=== PATIENT | male | born 1955 | race Two or more races ===

== ENCOUNTER 2018-07-08 11:00 | Outpatient (AMBR) | payer MEDICAID, SELFPAY ==
--- NOTE | 2018-06-24 13:42 | PT.ODAYNRPT ---
PT Outpatient Daily Note Date of Service: June 24, 2018 OP Daily Note Visit Reasons: total knee Outpatient Physical Therapy Treatment Date: 06/24/18 Subjective: Continued knee pain. Can't remember doing his HEP Objective: See F/S for therex MT: PPM into knee extension to end-range with overpressure x7' total Assessment: Pt is now 2 months post op after waiting for authorization and then not answering our calls to schedule a treatment visit until now. Poor compliance with HEP, difficulty with SLR and no change in ROM since eval last month. Good improvement with knee extension PROM post manual therapy today to -2 deg Plan: Continue per POC Length of Time (minutes) of Treatment: 30 Minutes Office Procedures PT Procedures PT Date of Service: 06/24/18 Therapeutic Exercise 30 minutes: Yes
--- NOTE | 2018-06-24 13:47 | PTNOTE_ITS ---
PT Outpatient Daily Note Date of Service: June 24, 2018 OP Daily Note Visit Reasons: total knee Outpatient Physical Therapy Treatment Date: 06/24/18 Subjective: Continued knee pain. Can't remember doing his HEP Objective: See F/S for therex MT: PPM into knee extension to end-range with overpressure x7' total Assessment: Pt is now 2 months post op after waiting for authorization and then not answering our calls to schedule a treatment visit until now. Poor compliance with HEP, difficulty with SLR and no change in ROM since eval last month. Good improvement with knee extension PROM post manual therapy today to - 2 deg Plan: Continue per POC Length of Time (minutes) of Treatment: 30 Minutes Office Procedures PT Procedures PT Date of Service: 06/24/18 Therapeutic Exercise 30 minutes: Yes
--- NOTE | 2018-06-27 14:45 | PT.ODAYNRPT ---
PT Outpatient Daily Note Date of Service: June 27, 2018 OP Daily Note Visit Reasons: total knee Outpatient Physical Therapy Treatment Date: 06/27/18 Subjective: pt reported pain upon visit and is not taking pain meds. Objective: see flow sheet. Assessment: pt ambulates with antalgic gait and no AD. pt tolerated PROM of knee flexion well with no complaints but advised pt to take deep breaths throughout the stretches. pt was able to relax which made improvement in his ROM. pt cooperated well with all other ther ex with no c/o increased pain. Plan: continue POC per PT. Length of Time (minutes) of Treatment: 30 Minutes Office Procedures PT Procedures PT Date of Service: 06/24/18 Therapeutic Exercise 30 minutes: Yes PT Procedures PT Date of Service: 06/27/18 Therapeutic Exercise 30 minutes: Yes
--- NOTE | 2018-07-03 11:40 | PT.ODAYNRPT ---
PT Outpatient Daily Note Date of Service: July 03, 2018 OP Daily Note Visit Reasons: total knee Outpatient Physical Therapy Treatment Date: 07/03/18 Subjective: Continued knee pain. Can't remember doing his HEP Objective: See F/S for therex MT: PPM into knee extension to end-range with overpressure x7' total Assessment: Poor compliance with HEP, less difficulty with SLR. Good improvement with knee extension PROM post manual therapy today to -2 deg Plan: Continue per POC Length of Time (minutes) of Treatment: 30 Minutes Office Procedures PT Procedures PT Date of Service: 07/03/18 Therapeutic Exercise 30 minutes: Yes PT Procedures PT Date of Service: 06/24/18 Therapeutic Exercise 30 minutes: Yes PT Procedures PT Date of Service: 06/27/18 Therapeutic Exercise 30 minutes: Yes
--- NOTE | 2018-07-08 18:19 | PT.ODAYNRPT ---
PT Outpatient Daily Note Date of Service: July 08, 2018 OP Daily Note Visit Reasons: total knee Outpatient Physical Therapy Treatment Date: 07/08/18 Subjective: Continued knee pain. Can't remember doing his HEP Objective: See F/S for therex MT: PPM into knee flexion to end-range with overpressure x7' total Assessment: Poor compliance with HEP, less difficulty with SLR. Good improvement with knee flexion PROM post manual therapy today to 118 deg Plan: Continue per POC Length of Time (minutes) of Treatment: 30 Minutes Office Procedures PT Procedures PT Date of Service: 07/03/18 Therapeutic Exercise 30 minutes: Yes PT Procedures PT Date of Service: 07/08/18 Therapeutic Exercise 30 minutes: Yes PT Procedures PT Date of Service: 06/24/18 Therapeutic Exercise 30 minutes: Yes PT Procedures PT Date of Service: 06/27/18 Therapeutic Exercise 30 minutes: Yes
== END 2018-07-13 23:59 | disposition home or self-care (01) ==
PROVIDERS: PCP Family Medicine; Referring Provider Family Medicine; Visit Provider Family Medicine
DX: I10 Essential (primary) hypertension (principal)
CPT/HCPCS: 97110

== ENCOUNTER 2025-04-22 21:03 | Emergency (ER) | payer MEDICARE, SELFPAY ==
[2025-04-22 21:43] VITALS: BP 115/65; PULSE 66; RESP 18; TEMP 37.7; O2SAT 97
--- NOTE | 2025-04-22 22:30 | XR_ITS ---
Examination: PA lateral chest 2 views TECHNIQUE: Upright PA and lateral chest 2 views Date and time: April 22, 2025 11:28 PM Comparison November 02, 2020 INDICATIONS: Coughing chest pain today FINDINGS: Normal heart size Minimal blunting of the right lateral costophrenic angle. No pneumonia or pulmonary edema IMPRESSION:: No pneumonia or pulmonary edema
--- NOTE | 2025-04-22 22:38 | PD.EDURI ---
Upper Respiratory Inf. RME/HPI General Chief Complaint: Flu Like Symptoms Stated Complaint: SORE THROAT, AGUSTIN, BODYACHES, FEVER Time Seen by Provider: 04/22/25 22:30 Arrival date/time: 04/22/25 21:03 69M with history of HTN and DM presents to ED with 1 day of sore throat, cough, body aches, and fevers/chills. Patient went to clinic and tested neg for strep and flu. Limitations: no limitations Related Data Home Medications ?Medication ?Instructions ?Recorded ?Confirmed aspirin 81 mg chewable tablet 81 mg PO DAILY 01/29/18 11/03/20 gabapentin 300 mg capsule 300 mg PO TID 01/29/18 11/03/20 glipizide 10 mg tablet 10 mg PO BID 01/29/18 11/02/20 lisinopril 20 1 tab PO QDAY 01/29/18 11/03/20 mg-hydrochlorothiazide 12.5 mg tablet lovastatin 10 mg tablet 10 mg PO QDAY 01/29/18 11/03/20 sitagliptin phosphate 50 1 tab PO BID 01/29/18 11/03/20 mg-metformin 1,000 mg tablet (Janumet) Previous Rx's ?Medication ?Instructions ?Recorded acetaminophen 325 mg tablet (Mapap 650 mg (2 x 325 mg) PO Q6H PRN 11/03/20 (acetaminophen)) Fever >101.5 #20 tabs azithromycin 500 mg tablet 500 mg PO QDAY #5 tabs 11/03/20 Allergies Allergy/AdvReac Type Severity Reaction Status Date / Time No Known Allergies Allergy Verified 04/22/25 21:04 Review of Systems Review of Systems Systems Reviewed: All systems reviewed, normal except as documented Constitutional Constitutional: Reports system reviewed and no additional complaints, except as documented, Reports as per HPI, Reports body ache(s), Reports chills, Reports fever(s) and Denies headache(s) ENT Ears, Nose, Mouth, and Throat: Reports as per HPI, Denies disequilibrium, Denies headache(s) and Reports sore throat Cardiovascular Cardiovascular: Reports system reviewed and no additional complaints, except as documented, Denies chest pain and Denies dyspnea Respiratory Respiratory: Reports system reviewed and no additional complaints, except as documented, Reports as per HPI, Reports cough and Denies dyspnea Gastrointestinal Gastrointestinal: Reports system reviewed and no additional complaints, except as documented, Denies abdominal pain, Denies nausea and Denies vomiting Neurologic Neurologic: Reports system reviewed and no additional complaints, except as documented, Denies confusion, Denies disequilibrium and Denies headache(s) Psychiatric Psychiatric: Denies confusion Past Medical History Past Medical History CARDIAC: Positive Hypercholesterolemia and Hypertension; Negative Congestive Heart Failure RESPIRATORY: Negative Chronic Obstructive Pulmonary Disease (COPD) GENITOURINARY: Negative Renal Disease ENDOCRINE: Positive Diabetes Mellitus Type 2; Negative Diabetes Mellitus Type 1 Social History SMOKING STATUS: Never smoker SECOND HAND EXPOSURE: No ED Exam General Limitations: Present no limitations General appearance: Present alert and in no apparent distress Head Head exam: Present atraumatic Eye Eye exam: Present normal appearance, PERRL and EOMI ENT ENT exam: Present normal exam, normal oropharynx and mucous membranes moist Neck Neck exam: Present normal inspection, full ROM and trachea midline Chest Chest inspection: Present normal inspection and symmetric chest wall rise Respiratory Respiratory exam: Present normal lung sounds bilaterally Cardiovascular Cardiovascular exam: Present regular rate, normal rhythm and normal heart sounds Abdominal Exam Abdominal exam: Present soft and normal bowel sounds Extremities Exam Extremities exam: Present normal inspection and full ROM Back Exam Back exam: Present normal inspection and full ROM Neurological Exam Neurological exam: Present alert, oriented X3 and CN II-XII intact Psychiatric Psychiatric exam: Present normal affect and normal mood Skin Skin exam: Present warm, dry, intact and normal color Course Quality Measures none Orders Category Date Time Status Bedside COVID-19 Antigen Test NOW Care 04/22/25 22:30 Active Bedside Influenza A&B Antigen Test NOW Care 04/22/25 22:31 Active Blood glucose [Bedside Blood Glucose] NOW Care 04/22/25 22:30 Active XR chest 2V Stat Exams 04/22/25 22:30 Completed Vital Signs Vital signs: Vital Signs Temperature 99.9 F 04/22/25 21:43 Pulse Rate 66 04/22/25 21:43 Respiratory Rate 18 04/22/25 21:43 Blood Pressure 115/65 04/22/25 21:43 Pulse Oximetry (%) 97 04/22/25 21:43 Oxygen Delivery Method Room Air 04/22/25 21:43 O2 at 97% on RA and WNLs Upper Respiratory Infection MDM Narrative MDM Narrative:: 69M with history of HTN and DM presents to ED with 1 day of sore throat, cough, body aches, and fevers/chills. Patient went to clinic and tested neg for strep and flu. Physical exam reveals clear lungs and normal WOB. Normal oropharynx. Patient is afebrile, calm, and alert. Swabs neg. CXR unremarkable. Likely viral URI. Patient data External records reviewed:: [facility] previous records Clinical information provided by:: patient Social determinants that could affect healthcare access:: none Patient has the following chronic illnesses:: DM and HTN How is presenting disease/condition affected by chronic disease/condition?: exacerbated by Evaluation data The following diagnostics were reviewed and interpreted by me:: lab results and radiology exam(s) Lab and/or radiology exams considered but not ordered:: ordered Interpretation Summary: above Medications / Prescriptions Medications or Prescriptions considered but not ordered:: not ordered Medication administrations:: n/a Consultations Consultation(s) initiated? (list below): No Diagnosis Upper Respiratory Differential Diagnosis: upper respiratory infection, croup, otitis media, sinusitis, viral infection, bronchitis, influenza and pharyngitis Most likely diagnosis given after review of the tests above:: URI Admission Indicated Admission indicated?: not indicated Admission Request Was there a request for admission?: No Disposition Plan Disposition Plan: Discharge Discharge Attestation Discharge Attestation: The patient and all family members were given an opportunity to ask questions and understood the discharge instructions. Discharge instructions specifically effects, indications for sooner follow up or return to the emergency department, and the expected course of current diagnosis. Patient condition: Stable Discharge Plan Plan Patient Disposition: HOME (Self Care) Discharge Disposition comment: Stable Prescriptions/Referrals Prescriptions/Med Rec: No Action acetaminophen [Mapap (acetaminophen)] 325 mg Tablet 650 mg PO Q6H PRN (Reason: Fever >101.5) Qty: 20 0RF azithromycin 500 mg tablet 500 mg PO QDAY Qty: 5 0RF Rx Instructions: 500 mg PO; lisinopril-hydrochlorothiazide 20-12.5 mg Tablet 1 tab PO QDAY glipizide 10 mg Tablet 10 mg PO BID lovastatin 10 mg Tablet 10 mg PO QDAY gabapentin 300 mg Capsule 300 mg PO TID aspirin 81 mg Tablet,Chewable 81 mg PO DAILY Janumet 50-1,000 mg Tablet 1 tab PO BID Referrals: Jarrett Silva PA-C [Primary Care Provider] - In 1 week Problem List Clinical Impression: Upper respiratory infection Patient/Caregiver Discharge Instructions Education Materials: ED URI, Viral, No Abx (Adult) Additional Instructions: Please follow-up with PCP within 24-48 hours and return immediately if symptoms worsen. Ibuprofen/Tylenol can be used simultaneously for greater fever/pain control. Benadryl is good for cough, congestion, and sleep. Keep hydrated. Advance diet as tolerated. Print Language: Georgian Stand Alone Forms: Patient Portal Info Letter PA/GAS ANALYST Supervising Physician PA/SHAHNAZ Supervising Physician: Dr. Núñez
== END 2025-04-23 00:54 | disposition home or self-care (01) ==
PROVIDERS: Emergency Provider Emergency Medicine; PCP Physician Assistant
DX: J06.9 Acute upper respiratory infection, unspecified (principal); E11.9 Type 2 diabetes mellitus without complications; I10 Essential (primary) hypertension
CPT/HCPCS: 71046; 87400; 87811; 99283